=== PATIENT | female | born 1970 | race Caucasian/White ===

== ENCOUNTER 2018-10-04 17:58 | Emergency (ER) | payer OTHER, MEDICAID ==
[2018-10-04] MEDS: morphine 4 MG/ML VIAL IV (18:51)
[2018-10-04] MEDS: KETOROLAC 15 MG INJ IV (18:51)
== END 2018-10-04 20:33 | disposition home or self-care (01) ==
LOC: E/R 17:58
DX: M54.2 Cervicalgia (principal); F17.210 Nicotine dependence, cigarettes, uncomplicated; R51 Headache; R07.9 Chest pain, unspecified
CPT/HCPCS: 70450; 71045; 72125; 81025; 93005; 96374; 96375; 99285-25